=== PATIENT | male | born 1940 | race Two or more races ===

== ENCOUNTER 2018-02-17 02:33 | Emergency (ER) | payer OTHER ==
[~2018-02-17] VITALS: Ht 160 cm; Wt 70.3 kg
[2018-02-17 02:44] VITALS: BP 121/51
== END 2018-02-17 05:50 | disposition left against medical advice (07) ==
LOC: ER 02:34
DX: R05 Cough (principal); Z53.21 Procedure and treatment not carried out due to patient leaving prior to being seen by health care provider
CPT/HCPCS: 71045

== ENCOUNTER 2025-04-07 00:03 | Inpatient (IN) | payer OTHER, MEDICAID ==
[~2025-04-07] VITALS: Ht 160 cm; Wt 74.5 kg
[2025-04-07] VITALS (7 sets, daily range): BP systolic 151–155; BP diastolic 70–84; PULSE 36–69; RESP 17–24; TEMP 97.6–97.7; O2SAT 96–98
--- NOTE | 2025-04-07 00:33 | ED.PDOC ---
SOB-HPI HPI Comments 84 year old Male with a Hx of HTN and DM was BIB daughter for the c/c of SOB. Per Daughter pt was a [facility] 2x days ago for SOB/Hypotension and was told that he needs a pacemaker. Pt now presents to [facility] for SOB, but with associated Dizziness and a GONZALES. Pt also notes that he experiences pain upon deep inspiration. No other associated symptoms, modifiers, recent injuries or sick contacts present at this time. Time Seen by MD: 00:26 Reviewed notes: Nurses Notes, Medications, Allergies Information Source: Patient, Relative (Child) Mode of Arrival: Ambulatory Severity: Moderate Timing: Days Duration: Since onset, Days Context: At Rest PE Risk Factors: None History of: Other (HTN and DM) Prehospital treatment: None Modifying Factors: Nothing Associated Signs and Symptoms: Other (Dizziness and GONZALES) If cough with SOB: Non-Productive Vital Signs Vital Signs Date Time Temp Pulse Resp B/P (MAP) Pulse Ox O2 Delivery O2 Flow Rate FiO2 04/07/25 05:34 37 17 132/47 (75) 94 04/07/25 00:32 Room Air* 0 21 04/07/25 00:32 98.0 98.0 Physical Exam General: Awake, alert and oriented. Moderate distress. Skin: Skin in warm, dry and intact. Appropriate color for ethnicity. HEENT: The head is normocephalic and atraumatic. Conjunctivae are clear without exudates or hemorrhage. Sclera is non-icteric. EOM are intact. No signs of nystagmus. Eyelids are normal in appearance without swelling or lesions. Oral mucosa is pink and moist Neck: The neck is supple with normal range of motion. No JVD. Cardiac: Heart rate and rhythm are normal. No murmurs, gallops, or rubs are auscultated. Respiratory: SOB Noted, pain upon deep inspiration. Lung sounds are clear in all lobes bilaterally without rales, rhonchi, or wheezes. Abdominal: Abdomen is soft, non-tender without distention, guarding or rigidity. Bowel sounds are present and normoactive in all four quadrants. Extremities: Upper and lower extremities are atraumatic in appearance without deformity or edema. Neurological: The patient is awake, alert and oriented to person, place, and time with normal speech. Speech is clear. There is no facial asymmetry. Psychiatric: Appropriate mood and affect. Good judgement and insight. Review of Systems: REVIEW OF SYSTEMS: No fever, no chills, or fatigue HEENT: No sore throat, no earache, no congestion, no neck pain. Cardiac: No chest pain. No palpitations. Lungs: + shortness of breath, no cough. GI: No nausea, no vomiting, no diarrhea, no constipation, no abdominal pain : No dysuria, frequency, or urgency. No hematuria. Musculoskeletal: No joint pain , no joint swelling, no extremity edema. Skin: No rash, no itching. Neuro: + headache, + dizziness, no weakness Past Medical History PAST MEDICAL HISTORY: DM, HTN Surgical History (Other): Bilateral full knee replacement Family History Family History: Unknown Social History Smoker: Non-Smoker Alcohol: Denies ETOH Use Drugs: Denies Drug Use Lives In: Home Was a procedure done? Was a procedure done?: No Differential Dx Differential Diagnosis: Anxiety, Bronchitis, Cardiogenic Shock, CHF, COPD, Hypertension, Myocardial infarction, Pneumonia, Other (Cardiac arrhythmia, heart block, other) X-Ray, Labs, Meds, VS Vital Signs Date Time Temp Pulse Resp B/P (MAP) Pulse Ox O2 Delivery O2 Flow Rate FiO2 04/07/25 05:34 37 17 132/47 (75) 94 04/07/25 04:32 45 10 176/78 (110) 96 04/07/25 04:30 44 04/07/25 03:00 44 17 181/64 (103) 97 04/07/25 02:00 44 11 171/67 (101) 96 04/07/25 00:52 38 20 154/66 (95) 96 04/07/25 00:32 36 17 96 Room Air* 0 21 04/07/25 00:32 98.0 36 17 199/75 (116) 96 98.0 04/07/25 00:30 38 04/07/25 00:18 34 04/07/25 00:10 97.6 36 18 167/59 (95) 98 97.6 Lab Test 04/07/25 02:47 04/07/25 01:54 04/07/25 01:06 04/07/25 00:32 Range/Units White Blood Count 7.3 4.4-10.8 10^3/uL Red Blood Count 4.68 4.5-5.90 10^6/uL Hemoglobin 14.3 13.5-17.5 g/dL Hematocrit 41.0 41.0-53.0 % Mean Corpuscular Volume 87.7 80.0-100.0 fL Mean Corpuscular Hemoglobin 30.6 28.0-32.0 pg Mean Corpuscular Hemoglobin Concent 34.9 32.0-36.0 g/dL Red Cell Distribution Width 13.5 11.8-14.3 % Platelet Count 161 140-450 10^3/uL Mean Platelet Volume 9.3 6.9-10.8 fL Neutrophils (%) (Auto) 49.1 37.0-80.0 % Lymphocytes (%) (Auto) 40.9 10.0-50.0 % Monocytes (%) (Auto) 6.2 0.0-12.0 % Eosinophils (%) (Auto) 3.0 0.0-7.0 % Basophils (%) (Auto) 0.8 0.0-2.0 % Neutrophils # (Auto) 3.6 1.6-8.6 10 ^3/uL Lymphocytes # (Auto) 3.0 0.4-5.4 10 ^3/uL Monocytes # (Auto) 0.5 0-1.3 10 ^3/uL Eosinophils # (Auto) 0.2 0-0.8 10 ^3/uL Basophils # (Auto) 0.1 0-0.2 10 ^3/uL Nucleated Red Blood Cells 0.0 % Urine Color Light-yellow Yellow Urine Clarity Clear Clear Urine pH 6.5 5.0-9.0 Urine Specific [place] 1.008 1.001-1.035 Urine Protein Negative Negative Urine Ketones Negative Negative Urine Blood Negative Negative /uL Urine Nitrite Negative Negative Urine Bilirubin Negative Negative Urine Urobilinogen Normal Negative mg/dL Urine Leukocyte Esterase Negative Negative /uL Urine RBC None seen 0 - 3 /hpf Urine Microscopic WBC < 1 0-3 /HPF Urine Squamous Epithelial Cells None seen <5 /hpf Urine Bacteria None seen None Seen /hpf Urine Glucose Normal Normal mg/dL POC Glucose 110 H 70-106 mg/dl Sodium Level 139 136-145 mmol/L Potassium Level 3.7 3.5-5.1 mmol/L Chloride Level 102 98-107 mmol/L Carbon Dioxide Level 28 20-31 mmol/L Anion Gap 9 5-15 Blood Urea Nitrogen 14 9-23 mg/dL Creatinine 1.01 0.700-1.30 mg/dL Glomerular Filtration Rate Calc 73 >90 mL/min BUN/Creatinine Ratio 13.9 10.0-20.0 Serum Glucose 110 H 74-106 mg/dL Calcium Level 9.9 8.7-10.4 mg/dL Magnesium Level 1.9 1.6-2.6 mg/dL Troponin I High Sensitivity 14 </=54 ng/L B-Type Natriuretic Peptide 192.89 0-100 pg/mL Thyroid Stimulating Hormone (TSH) 2.64 0.55-4.78 uIU/mL PATIENT: ROLAND DAILY ACCT: [id number] UNIT: [id number] : 1940 LOC: ER ROOM / BED: / AGE / SEX: 84 / M ADM STATUS: REG ER SERVICE 0022 ORDERING PHYSICIAN: ZACKARY LOZANO MD PROCEDURE(s): CXR1 - CHEST XRAY 1 VIEW REASON: sob, bradycardia ORDER NUMBER(s): [id number], ACCESSION NUMBER(s): [id number] CHEST RADIOGRAPH Indication: sob, bradycardia Technique: Single frontal view of the chest was obtained COMPARISON: None FINDINGS: Lines and Tubes: None Lungs: Clear Pleura: No effusion. No pneumothorax. Cardiomediastinal contours: Unremarkable. Atherosclerotic vascular calcifications. Bones: Unremarkable IMPRESSION: 1. No acute disease. Time of 1ST Reevaluation: 00:58 Reevaluation 1ST: Unchanged Patient Education/Counseling: Need For Follow Up Family Education/Counseling: Need For Follow Up Departure 1 Departure Time of Disposition: 03:13 Impression: Primary Impression: Symptomatic bradycardia Disposition: 09 ADMITTED INPATIENT Condition: Stable e-Prescriptions Doxycycline (Monohydrate) (Doxycycline) 100 Mg Tab 100 MG PO BID for 7 Days, #14 TAB 0 Refills Prov: REYMUNDOTREVONMARIANO DO 04/08/25 Comments Extensive evaluation was performed in attempt to identify or rule out: (See differential diagnosis section) The following tests were ordered, and results were reviewed by me and discussed with patient: (See diagnostic results section) The following test were independently interpreted by me: EKG I reviewed and agreed with the following test results read by other providers: Chest x-ray I reviewed the following notes from the pt's past medical encounters: January 2018 for cough Additional information was gathered from interviewing the following independent historians: Patient's at bedside Discussion of management or test interpretation with external physician/other qualified health career development specialist: Dr. Bentley Addressed an acute or chronic illness that poses a threat to life or bodily function: Dramatic bradycardia Decision regarding hospitalization or escalation of hospital level of care: Risk and benefits of admission for further treatment of patient's condition was considered. Due to patient's current clinical condition, high risk of decline and poor outcome if discharged and need for further inpatient management and mo nitoring, patient will be admitted to the hospital. Drug therapy requiring intensive monitoring for toxicity: IV atropine Parenteral controlled substances: N/A Decision regarding elective major surgery with identified patient or procedure risk factors: N/A Decision regarding emergency major surgery: N/A Decision not to resuscitate or to de-escalate care because of poor prognosis: N/A Diagnosis or treatment significantly limited by social determinants of health: N/A Critical Care Note Critical Care Time?: No Stability Stability form required: No Heart Score Heart Score: Heart Score Response (Comments) Value History N/A 0 EKG N/A 0 Age N/A 0 Risk Factors N/A 0 Troponin N/A 0 Total 0 I personally scribed for ZACKARY LOZANO MD ([email or web address]) on 04/07/25 at 00:33. Electronically submitted by Bruce Machuca ([email or web address]). I personally scribed for ZACKARY LOZANO MD ([email or web address]) on 04/07/25 at 01:19. Electronically submitted by Bruce Machuca ([email or web address]). I personally scribed for ZACKARY LOZANO MD ([email or web address]) on 04/07/25 at 01:49. Electronically submitted by Bruce Machuca ([email or web address]). ZACKARY LOZANO MD Apr 07, 2025 00:33
[2025-04-07] MEDS: ATROPINE SULF 1 MG/10ml SYR IV ONE ×2 (00:51→06:03)
[2025-04-07 01:01] LABS: Chloride 102 mmol/L (98-107); Potassium 3.7 mmol/L (3.5-5.1); Sodium 139 mmol/L (136-145)
[2025-04-07 01:02] LABS: Anion Gap 9 (5-15); Calcium 9.9 mg/dL (8.7-10.4); Carbon Dioxide 28 mmol/L (20-31)
[2025-04-07 01:07] LABS: BUN/Creatinine Ratio 13.9 (10.0-20.0); Blood Urea Nitrogen 14 mg/dL (9-23); Glucose 110 mg/dL (74-106); Magnesium 1.9 mg/dL (1.6-2.6)
--- NOTE | 2025-04-07 01:14 | DVH ---
CHEST RADIOGRAPH Indication: sob, bradycardia Technique: Single frontal view of the chest was obtained COMPARISON: None FINDINGS: Lines and Tubes: None Lungs: Clear Pleura: No effusion. No pneumothorax. Cardiomediastinal contours: Unremarkable. Atherosclerotic vascular calcifications. Bones: Unremarkable IMPRESSION: 1. No acute disease.
[2025-04-07 02:02] LABS: Urine Bacteria None Seen /hpf (None Seen)
[2025-04-07 02:13] LABS: Urine Blood Negative /uL (Negative); Urine Clarity Clear (Clear); Urine Color Light-Yellow (Yellow); Urine Protein, UAD Negative (Negative); Urine Specific Gravity 1.008 (1.001-1.035); Urine Squamous Epithelial Cell None Seen /hpf (<5); Urine Urobilinogen Normal (Negative); Urine WBC < 1 /HPF (0-3); Urine pH 6.5 (5.0-9.0)
[2025-04-07 02:57] LABS: Basophils # (auto) 0.1 10 ^3/uL (0-0.2); Basophils % (auto) 0.8 % (0.0-2.0); Eosinophils # (auto) 0.2 10 ^3/uL (0-0.8); Hemoglobin 14.3 g/dL (13.5-17.5); Lymphocytes % (auto) 40.9 % (10.0-50.0); Mean Corpuscular Hemoglobin 30.6 pg (28.0-32.0); Mean Corpuscular Hgb Conc. 34.9 g/dL (32.0-36.0); Mean Corpuscular Volume 87.7 fL (80.0-100.0); Monocytes # (auto) 0.5 10 ^3/uL (0-1.3); Monocytes % (auto) 6.2 % (0.0-12.0); Neutrophils # (auto) 3.6 10 ^3/uL (1.6-8.6); Neutrophils % (auto) 49.1 % (37.0-80.0); Platelet Count (auto) 161 10^3/uL (140-450); Red Blood Cells 4.68 10^6/uL (4.5-5.90); Red Cell Distribution Width 13.5 % (11.8-14.3); White Blood Cell 7.3 10^3/uL (4.4-10.8)
[2025-04-07] MEDS ORDERED: NITROGLYCERIN 0.4 MG SL TAB SL PRN (06:15)
[2025-04-07] MEDS ORDERED: MORPHINE SULFATE 4 MG/ML SYR/VIAL IV PRN (06:15)
[2025-04-07] MEDS ORDERED: hydrALAZINE HCL 10 MG TAB PO PRN (06:15)
--- NOTE | 2025-04-07 06:18 | DVHHP2 ---
Admitting Diagnosis: Symptomatic bradycardia History of Present Illness HPI 84 y.o. male with HTN and DM was brought to the ER c/o SOB, lightheadedness for a week. He visited [facility] 3 days ago and was told that he needs a pacemaker. In the ER today he received Atropine twice. HR is still in 30-40s. Patient denied CP, palpitations, AP, fever. Past Medical History Cardiac: HTN Endocrine: NIDDM Review of Systems Cardiovascular: Lt Headedness, Other (bradycardia) H&P Exam Vital Signs Vital Signs Date Time Temp Pulse Resp B/P (MAP) Pulse Ox O2 Delivery O2 Flow Rate FiO2 04/07/25 04:32 45 10 176/78 (110) 96 04/07/25 00:32 Room Air* 0 21 04/07/25 00:32 98.0 98.0 General Appeara: Obese Head Exam: Normal inspection Neck Exam: Non-tender Eye Exam: bilateral eye PERRL, bilateral eye EOMI Pulmonary/Respiratory: Lungs clear Cardiovascular/Chest: Bradycardia Neuro/Mental St: Alert, Oriented Labs/Xrays Labs Test 04/07/25 02:47 04/07/25 01:54 04/07/25 01:06 04/07/25 00:32 Range/Units White Blood Count 7.3 4.4-10.8 10^3/uL Red Blood Count 4.68 4.5-5.90 10^6/uL Hemoglobin 14.3 13.5-17.5 g/dL Hematocrit 41.0 41.0-53.0 % Mean Corpuscular Volume 87.7 80.0-100.0 fL Mean Corpuscular Hemoglobin 30.6 28.0-32.0 pg Mean Corpuscular Hemoglobin Concent 34.9 32.0-36.0 g/dL Red Cell Distribution Width 13.5 11.8-14.3 % Platelet Count 161 140-450 10^3/uL Mean Platelet Volume 9.3 6.9-10.8 fL Neutrophils (%) (Auto) 49.1 37.0-80.0 % Lymphocytes (%) (Auto) 40.9 10.0-50.0 % Monocytes (%) (Auto) 6.2 0.0-12.0 % Eosinophils (%) (Auto) 3.0 0.0-7.0 % Basophils (%) (Auto) 0.8 0.0-2.0 % Neutrophils # (Auto) 3.6 1.6-8.6 10 ^3/uL Lymphocytes # (Auto) 3.0 0.4-5.4 10 ^3/uL Monocytes # (Auto) 0.5 0-1.3 10 ^3/uL Eosinophils # (Auto) 0.2 0-0.8 10 ^3/uL Basophils # (Auto) 0.1 0-0.2 10 ^3/uL Nucleated Red Blood Cells 0.0 % Urine Color Light-yellow Yellow Urine Clarity Clear Clear Urine pH 6.5 5.0-9.0 Urine Specific [place] 1.008 1.001-1.035 Urine Protein Negative Negative Urine Ketones Negative Negative Urine Blood Negative Negative /uL Urine Nitrite Negative Negative Urine Bilirubin Negative Negative Urine Urobilinogen Normal Negative mg/dL Urine Leukocyte Esterase Negative Negative /uL Urine RBC None seen 0 - 3 /hpf Urine Microscopic WBC < 1 0-3 /HPF Urine Squamous Epithelial Cells None seen <5 /hpf Urine Bacteria None seen None Seen /hpf Urine Glucose Normal Normal mg/dL POC Glucose 110 H 70-106 mg/dl Sodium Level 139 136-145 mmol/L Potassium Level 3.7 3.5-5.1 mmol/L Chloride Level 102 98-107 mmol/L Carbon Dioxide Level 28 20-31 mmol/L Anion Gap 9 5-15 Blood Urea Nitrogen 14 9-23 mg/dL Creatinine 1.01 0.700-1.30 mg/dL Glomerular Filtration Rate Calc 73 >90 mL/min BUN/Creatinine Ratio 13.9 10.0-20.0 Serum Glucose 110 H 74-106 mg/dL Calcium Level 9.9 8.7-10.4 mg/dL Magnesium Level 1.9 1.6-2.6 mg/dL Troponin I High Sensitivity 14 </=54 ng/L B-Type Natriuretic Peptide 192.89 0-100 pg/mL Thyroid Stimulating Hormone (TSH) 2.64 0.55-4.78 uIU/mL Assessment/Plan Problem List: (1) Symptomatic bradycardia (2) HTN (hypertension) (3) DM (diabetes mellitus) Plan ECHO, cardiology consult, Insulin Plan discussed with: Patient FRANKY SAMANO MD Apr 07, 2025 06:18
[2025-04-07] MEDS ORDERED: ONDANSETRON HCL 4 MG/2 ML VIAL IV PRN (06:30)
[2025-04-07] MEDS ORDERED: DEXTROSE (50%) 50ML SYRG IV PRN (06:30)
[2025-04-07] MEDS: SOD CHL 0.45% 1,000 ML IV ONE (06:46)
[2025-04-07 06:47] LABS: INR 1.08 (0.9-1.15); Prothrombin Time 11.4 sec (9.3-11.8)
[2025-04-07] MEDS: InsuLIN REG 1unit/0.01ml Soln (100units/ml) SC SCH (07:30)
[2025-04-07] MEDS: ACCU-CHEK COMFORT CURVE STRIP VI SCH (07:30)
[2025-04-07] MEDS: hydrALAZINE HCL 20 MG/ML VL IV PRN (10:51)
--- NOTE | 2025-04-07 11:42 | DVHSR ---
APPROVED REPORT EXAM: Two-dimensional and M-mode echocardiogram with Doppler and color Doppler. Blood Pressure: 132/47 mmHg INDICATION Symtomatic bradycardia RISK FACTORS Height: 63, Weight: 156 DIMENSIONS LVDd4.9 (3.8-5.7cm)LA (2D)4.0 (1.9-4.0cm)Aortic Root4.3 (2.0-3.7cm) LVDs3.3 (2.5-4.0cm)LA (MM) (1.9-4.0cm)Aortic Cusp Exc1.6 (1.5-2.0cm) EF (%) 62.0 (55-70%)Rt. Atrium3.4 (1.9-4.0cm)Asc. Aorta cm IVSd1.2 (0.7-1.1cm)RV (D) (1.8-2.4cm) PWd1.5 (0.7-1.1cm) Mitral Valve MitralMitral Stenosis E wave0.89m/sMV Mean GR.mmHg A wave0.94m/sMV Peak GR.105mmHg E/A ratio0.92D MVAcm2 DECEL Lcwa303taMITAN 1/2 Tim[place] Aortic Valve Aortic ValveAortic Stenosis V10.95m/[place] Mean GR.5mmHg V21.67m/[place] Peak GR.11mmHg LVOT Diameter2.2 (1.8-2.4cm)Doppler AVA2.16cm2 AI P 1/2 Tbqu784.04ms Pulmonic Valve V21.18m/s Tricuspid Valve TR Velocity2.32m/s FITC10cmFn Other Information Technically limited study due to patient laying flat on his back and low heart rate. Conclusion lvef 55% normal rv function left atrium enlarged no severe valve abnormalites noted mild aortic regurg
--- NOTE | 2025-04-07 12:07 | DVHINCON2 ---
Date of service: Apr 07, 2025 History of Present Illness 84 yo M admitted for dizziness foudn to be jesus to 30s. ecg showed junctional jesus rate of 38. pt feels better now with HR 50s Past Medical History reviewed Allergies: Coded Allergies: NO KNOWN ALLERGIES (Unverified , 04/07/25) Current Medications Current Medications Medications (Trade) Dose Ordered Sig/Celestina Route PRN Reason Start Time Stop Time Status Last Admin Nitroglycerin (Ntrostat Sublingual) 0.4 mg Q5MINP PRN SL FOR CHEST PAIN 04/07/25 06:15 Morphine Sulfate 2 mg Q30M PRN IV FOR CHEST PAIN 04/07/25 06:15 Hydralazine HCl (Apresoline Tablet) 20 mg Q4HP PRN PO SBP>150 04/07/25 06:15 04/07/25 07:37 DC Diagnostic Test (Pha) (Accu-Chek Comfort Curve T) 1 strip ACHS 04/07/25 07:00 04/07/25 11:37 Insulin Human Regular (InsuLIN R) ACHS SC 04/07/25 07:00 04/07/25 11:43 Dextrose 50 ml UD PRN IV Blood Sugar LESS THAN 60 04/07/25 06:30 Ondansetron HCl (Zofran) 4 mg Q6HPRN PRN IV NAUSEA / VOMITING 04/07/25 06:30 Hydralazine HCl (Apresoline Injection) 10 mg Q6HP PRN IV SBP>150 04/07/25 07:45 04/07/25 10:51 Review of Systems 10 pt ros otherwise negative Vital Signs Vital Signs Date Time Temp Pulse Resp B/P (MAP) Pulse Ox O2 Delivery O2 Flow Rate FiO2 04/07/25 11:51 56 04/07/25 10:51 164/73 04/07/25 10:10 16 98 04/07/25 08:21 97.8 97.8 04/07/25 07:40 Room Air* 0 21 Physical Exam nad s1 s2 jesus ctab soft nt/nd no edema Labs/Diagnostic Data Labs Test 04/07/25 11:37 04/07/25 06:14 04/07/25 02:47 04/07/25 01:54 Range/Units POC Glucose 193 H 70-106 mg/dl Prothrombin Time 11.4 9.3-11.8 sec Prothrombin Time INR 1.08 0.9-1.15 White Blood Count 7.3 4.4-10.8 10^3/uL Red Blood Count 4.68 4.5-5.90 10^6/uL Hemoglobin 14.3 13.5-17.5 g/dL Hematocrit 41.0 41.0-53.0 % Mean Corpuscular Volume 87.7 80.0-100.0 fL Mean Corpuscular Hemoglobin 30.6 28.0-32.0 pg Mean Corpuscular Hemoglobin Concent 34.9 32.0-36.0 g/dL Red Cell Distribution Width 13.5 11.8-14.3 % Platelet Count 161 140-450 10^3/uL Mean Platelet Volume 9.3 6.9-10.8 fL Neutrophils (%) (Auto) 49.1 37.0-80.0 % Lymphocytes (%) (Auto) 40.9 10.0-50.0 % Monocytes (%) (Auto) 6.2 0.0-12.0 % Eosinophils (%) (Auto) 3.0 0.0-7.0 % Basophils (%) (Auto) 0.8 0.0-2.0 % Neutrophils # (Auto) 3.6 1.6-8.6 10 ^3/uL Lymphocytes # (Auto) 3.0 0.4-5.4 10 ^3/uL Monocytes # (Auto) 0.5 0-1.3 10 ^3/uL Eosinophils # (Auto) 0.2 0-0.8 10 ^3/uL Basophils # (Auto) 0.1 0-0.2 10 ^3/uL Nucleated Red Blood Cells 0.0 % Urine Color Light-yellow Yellow Urine Clarity Clear Clear Urine pH 6.5 5.0-9.0 Urine Specific [place] 1.008 1.001-1.035 Urine Protein Negative Negative Urine Ketones Negative Negative Urine Blood Negative Negative /uL Urine Nitrite Negative Negative Urine Bilirubin Negative Negative Urine Urobilinogen Normal Negative mg/dL Urine Leukocyte Esterase Negative Negative /uL Urine RBC None seen 0 - 3 /hpf Urine Microscopic WBC < 1 0-3 /HPF Urine Squamous Epithelial Cells None seen <5 /hpf Urine Bacteria None seen None Seen /hpf Urine Glucose Normal Normal mg/dL Test 04/07/25 00:32 Range/Units Sodium Level 139 136-145 mmol/L Potassium Level 3.7 3.5-5.1 mmol/L Chloride Level 102 98-107 mmol/L Carbon Dioxide Level 28 20-31 mmol/L Anion Gap 9 5-15 Blood Urea Nitrogen 14 9-23 mg/dL Creatinine 1.01 0.700-1.30 mg/dL Glomerular Filtration Rate Calc 73 >90 mL/min BUN/Creatinine Ratio 13.9 10.0-20.0 Serum Glucose 110 H 74-106 mg/dL Calcium Level 9.9 8.7-10.4 mg/dL Magnesium Level 1.9 1.6-2.6 mg/dL Troponin I High Sensitivity 14 </=54 ng/L B-Type Natriuretic Peptide 192.89 0-100 pg/mL Thyroid Stimulating Hormone (TSH) 2.64 0.55-4.78 uIU/mL Assessment HTN HL sick sinus syndrome obesity ckd Plan/Recommendation given low HR , PPM indicated currently HR in low 50s but still junctional hold avn agents echo fu report cont tele atropine prn dopamine gtt if HR worsens Plan discussed with: Patient RAMSES PEMBERTON MD Apr 07, 2025 12:07
--- NOTE | 2025-04-07 15:43 | ECG ---
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
[2025-04-07 16:29] LABS: INR 1.08 (0.9-1.15); Prothrombin Time 11.4 sec (9.3-11.8)
--- NOTE | 2025-04-07 18:28 | ECG ---
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
[2025-04-07] MEDS ORDERED: LOSA-534 PO (20:22)
[2025-04-07] MEDS ORDERED: ATOR20TA50 PO (20:22)
[2025-04-07] MEDS ORDERED: HYDR25TA5 GT (20:22)
[2025-04-07] MEDS ORDERED: NAPR-957 PO (20:22)
[2025-04-07] MEDS ORDERED: AMLO1TAB22 PO (20:22)
[2025-04-07] MEDS ORDERED: CHOL200010 PO (20:22)
[2025-04-07] MEDS ORDERED: TAMS-35 PO (20:22)
[2025-04-07] MEDS ORDERED: ASPI1TAB20 PO (20:22)
[2025-04-08] VITALS (12 sets, daily range): BP systolic 109–174; BP diastolic 64–90; PULSE 48–93; RESP 12–19; TEMP 97.2–98.2; O2SAT 94–98
--- NOTE | 2025-04-08 06:55 | DVHPN2 ---
Progress Note Date Seen: Apr 08, 2025 Medical Necessity Reason Pt with a Central, PICC or Fol: No Subjective Patient reports: No new complaints Review of Systems: CVS:Abnormal Objective vital signs Vital Sign Date Time Temp Pulse Resp B/P (MAP) Pulse Ox O2 Delivery O2 Flow Rate FiO2 04/08/25 05:00 97.8 50 16 143/66 (91) 98 97.8 04/07/25 20:00 Room Air* 0 21 Total Intake and Output 04/07/25 04/07/25 04/08/25 15:00 23:00 07:00 Intake Total 600 ml 150 ml 500 ml Balance 600 ml 150 ml 500 ml medications Current Medications Medications Dose Ordered Sig/Celestina Route Start Time Stop Time Status Last Admin Dose Admin Nitroglycerin 0.4 mg Q5MINP PRN SL 04/07/25 06:15 Morphine Sulfate 2 mg Q30M PRN IV 04/07/25 06:15 Diagnostic Test (Pha) 1 strip ACHS 04/07/25 07:00 04/08/25 06:06 1 STRIP Insulin Human Regular ACHS SC 04/07/25 07:00 04/08/25 06:07 2 UNITS Dextrose 50 ml UD PRN IV 04/07/25 06:30 Ondansetron HCl 4 mg Q6HPRN PRN IV 04/07/25 06:30 Hydralazine HCl 10 mg Q6HP PRN IV 04/07/25 07:45 04/07/25 10:51 10 MG Examination: GENERAL:Normal, LUNGS:Normal, CVS:Abnormal laboratory and microbiology Laboratory Tests 04/07/25 02:47 04/07/25 00:32 Test 04/07/25 00:32 Range/Units Serum Glucose 110 H 74-106 mg/dL Problem List/Assessment/Plan Problem List/Assessment/Plan 1) Symptomatic bradycardia 2) HTN 3) HLD 4) DM plan; PPM today with cardiology, NPO, supportive care, daily labs, dc planning once cleared by cardio after PPM, echo shows preserved EF, will follow along Plan discussed with: Other (n) DEREK MILLARD MD Apr 08, 2025 06:55
[2025-04-08 07:43] LABS: Basophils # (auto) 0 10 ^3/uL (0-0.2); Basophils % (auto) 0.4 % (0.0-2.0); Eosinophils # (auto) 0.2 10 ^3/uL (0-0.8); Eosinophils % (auto) 2.3 % (0.0-7.0); Hematocrit 42.4 % (41.0-53.0); Hemoglobin 15.1 g/dL (13.5-17.5); Lymphocytes # (auto) 2.4 10 ^3/uL (0.4-5.4); Lymphocytes % (auto) 30.9 % (10.0-50.0); Mean Corpuscular Hgb Conc. 35.7 g/dL (32.0-36.0); Monocytes # (auto) 0.5 10 ^3/uL (0-1.3); Monocytes % (auto) 6.2 % (0.0-12.0); Neutrophils # (auto) 4.7 10 ^3/uL (1.6-8.6); Neutrophils % (auto) 60.2 % (37.0-80.0); Nucleated Red Blood Cells % 0.1 %; Platelet Count (auto) 163 10^3/uL (140-450); Red Blood Cells 4.88 10^6/uL (4.5-5.90); Red Cell Distribution Width 13.4 % (11.8-14.3); White Blood Cell 7.8 10^3/uL (4.4-10.8)
[2025-04-08 07:55] LABS: Alanine Aminotransferase 19 U/L (7-40); Albumin 4.1 g/dL (3.2-4.8); Alkaline Phosphatase 84 U/L (46-116); Anion Gap 11 (5-15); Aspartate Aminotransferase 17 U/L (13-40); BUN/Creatinine Ratio 14.1 (10.0-20.0); Blood Urea Nitrogen 14 mg/dL (9-23); Calcium 9.8 mg/dL (8.7-10.4); Carbon Dioxide 25 mmol/L (20-31); Chloride 105 mmol/L (98-107); Glucose 121 mg/dL (74-106); Potassium 3.4 mmol/L (3.5-5.1); Sodium 141 mmol/L (136-145); Total Protein 6.3 g/dL (5.7-8.2)
[2025-04-08 07:56] LABS: Bilirubin, Total 2.5 mg/dL (0.2-1.0)
[2025-04-08] MEDS: fentaNYL CITRATE 100 MCG/2 ML VL ONE (08:35)
[2025-04-08] MEDS: MIDAZOLAM HCL 2MG/2ML 2ml VIAL (1mg/ml) ONE (08:35)
[2025-04-08] MEDS: VANCOMYCIN HCL 1000 MG VL ONE ×2 (08:35→09:42)
[2025-04-08] MEDS: LIDOCAINE 2%HCL (LOCAL ANESTH.) INJ 20ML MDV ONE (08:36)
[2025-04-08] MEDS: VANCOMYCIN 1GM/200ML PM 200 ML IV ONE (08:36)
[2025-04-08] MEDS: methylPREDNISolone SOD SUCC 125 MG/2 ML VL ONE (08:42)
[2025-04-08] MEDS: diphenhdrAMINE HCL 50 MG/1 ML VL ONE (08:42)
[2025-04-08] MEDS: IOHEXOL 350 MG/ML 100ML IJ ONE (08:44)
[2025-04-08 10:36] LABS: Hepatitis B Surface Antigen Negative (Negative); Hepatitis C Antibody Negative (Negative)
--- NOTE | 2025-04-08 11:16 | DVH ---
CHEST RADIOGRAPH Indication: S/P PACEMAKER Technique: Single frontal view of the chest was obtained COMPARISON: None FINDINGS: Left cardiac dual lead pacer device. Aortic atherosclerotic disease. The cardiac silhouette is enlarged. The lungs demonstrate bilateral patchy airspace opacities. The pu lmonary vasculature is prominent. Small bilateral pleural effusions, inlg-wjgrzxa-bora-right. There i s no pneumothorax. IMPRESSION: 1. As above
[2025-04-08] MEDS: DOXYCYCLINE 100 MG TAB/CAP PO SCH (11:58)
--- NOTE | 2025-04-08 12:23 | ECG ---
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
[2025-04-08] MEDS: HYDROcodone-ACET 5/325MG TAB PO PRN (13:18)
--- NOTE | 2025-04-08 17:00 | DVHPN2 ---
Progress Note Date Seen: Apr 08, 2025 Medical Necessity Reason Pt with a Central, PICC or Fol: No Subjective Patient reports: Feels better Objective vital signs Vital Sign Date Time Temp Pulse Resp B/P (MAP) Pulse Ox O2 Delivery O2 Flow Rate FiO2 04/08/25 11:59 175/90 04/08/25 11:15 97.6 60 17 96 97.6 04/07/25 20:00 Room Air* 0 21 Total Intake and Output 04/07/25 04/07/25 04/08/25 15:00 23:00 07:00 Intake Total 600 ml 150 ml 500 ml Balance 600 ml 150 ml 500 ml medications Current Medications Medications Dose Ordered Sig/Celestina Route Start Time Stop Time Status Last Admin Dose Admin Nitroglycerin 0.4 mg Q5MINP PRN SL 04/07/25 06:15 Morphine Sulfate 2 mg Q30M PRN IV 04/07/25 06:15 Diagnostic Test (Pha) 1 strip ACHS 04/07/25 07:00 04/08/25 11:30 1 STRIP Insulin Human Regular ACHS SC 04/07/25 07:00 04/08/25 11:30 3 UNITS Dextrose 50 ml UD PRN IV 04/07/25 06:30 Ondansetron HCl 4 mg Q6HPRN PRN IV 04/07/25 06:30 Hydralazine HCl 10 mg Q6HP PRN IV 04/07/25 07:45 04/08/25 11:59 10 MG Vancomycin HCl 200 ml @ 200 mls/hr Q12HR IV 04/08/25 22:00 04/09/25 10:59 Doxycycline Monohydrate 100 mg Q12HR PO 04/08/25 11:04 04/08/25 11:58 100 MG Acetaminophen/ Hydrocodone Bitart 1 tab Q4HPRN PRN PO 04/08/25 12:30 04/08/25 13:18 1 TAB Examination: GENERAL:Abnormal, HEENT:Abnormal, LUNGS:Abnormal, CVS:Abnormal, ABDOMEN:Abnormal laboratory and microbiology Laboratory Tests 04/08/25 06:34 Test 04/08/25 06:34 Range/Units Serum Glucose 121 H 74-106 mg/dL Problem List/Assessment/Plan Problem List/Assessment/Plan sick sinus s/p ppm bradycardia HTN HL cont abx dc home 04/09 after device check with 7 days of doxy wound check 1-2 weeks with me Plan discussed with: Patient Date of Service: Apr 08, 2025 Billing Provider: RAMSES PEMBERTON MD Common Visit Codes: NOT BILLABLE RAMSES PEMBERTON MD Apr 08, 2025 17:00
[2025-04-08] MEDS: VANCOMYCIN 1GM/200ML PM 200 ML IV SCH (21:55)
[2025-04-08] MEDS ORDERED: DOXY-346 PO (22:46)
--- NOTE | 2025-04-08 22:52 | DVHDS2 ---
Discharge Summary Date of Admission Apr 07, 2025 at 06:01 Date of Discharge: Apr 09, 2025 Labs/Diagnostic Data: Laboratory Results Test 04/08/25 20:46 04/08/25 06:34 04/07/25 15:58 04/07/25 01:54 POC Glucose 286 mg/dl (70-106) White Blood Count 7.8 10^3/uL (4.4-10.8) Red Blood Count 4.88 10^6/uL (4.5-5.90) Hemoglobin 15.1 g/dL (13.5-17.5) Hematocrit 42.4 % (41.0-53.0) Mean Corpuscular Volume 87.0 fL (80.0-100.0) Mean Corpuscular Hemoglobin 31.0 pg (28.0-32.0) Mean Corpuscular Hemoglobin Concent 35.7 g/dL (32.0-36.0) Red Cell Distribution Width 13.4 % (11.8-14.3) Platelet Count 163 10^3/uL (140-450) Mean Platelet Volume 9.8 fL (6.9-10.8) Neutrophils (%) (Auto) 60.2 % (37.0-80.0) Lymphocytes (%) (Auto) 30.9 % (10.0-50.0) Monocytes (%) (Auto) 6.2 % (0.0-12.0) Eosinophils (%) (Auto) 2.3 % (0.0-7.0) Basophils (%) (Auto) 0.4 % (0.0-2.0) Neutrophils # (Auto) 4.7 10 ^3/uL (1.6-8.6) Lymphocytes # (Auto) 2.4 10 ^3/uL (0.4-5.4) Monocytes # (Auto) 0.5 10 ^3/uL (0-1.3) Eosinophils # (Auto) 0.2 10 ^3/uL (0-0.8) Basophils # (Auto) 0 10 ^3/uL (0-0.2) Nucleated Red Blood Cells 0.1 % Sodium Level 141 mmol/L (136-145) Potassium Level 3.4 mmol/L (3.5-5.1) Chloride Level 105 mmol/L (98-107) Carbon Dioxide Level 25 mmol/L (20-31) Anion Gap 11 (5-15) Blood Urea Nitrogen 14 mg/dL (9-23) Creatinine 0.99 mg/dL (0.700-1.30) Glomerular Filtration Rate Calc 75 mL/min (>90) BUN/Creatinine Ratio 14.1 (10.0-20.0) Serum Glucose 121 mg/dL (74-106) Calcium Level 9.8 mg/dL (8.7-10.4) Total Bilirubin 2.5 mg/dL (0.2-1.0) Aspartate Amino Transferase (AST) 17 U/L (13-40) Alanine Aminotransferase (ALT) 19 U/L (7-40) Alkaline Phosphatase 84 U/L (46-116) Total Protein 6.3 g/dL (5.7-8.2) Albumin 4.1 g/dL (3.2-4.8) Prothrombin Time 11.4 sec (9.3-11.8) Prothrombin Time INR 1.08 (0.9-1.15) Hepatitis B Surface Antigen Negative (Negative) Hepatitis C Antibody Negative (Negative) Urine Color Light-yellow (Yellow) Urine Clarity Clear (Clear) Urine pH 6.5 (5.0-9.0) Urine Specific [place] 1.008 (1.001-1.035) Urine Protein Negative (Negative) Urine Ketones Negative (Negative) Urine Blood Negative /uL (Negative) Urine Nitrite Negative (Negative) Urine Bilirubin Negative (Negative) Urine Urobilinogen Normal mg/dL (Negative) Urine Leukocyte Esterase Negative /uL (Negative) Urine RBC None seen /hpf (0 - 3) Urine Microscopic WBC < 1 /HPF (0-3) Urine Squamous Epithelial Cells None seen /hpf (<5) Urine Bacteria None seen /hpf (None Seen) Urine Glucose Normal mg/dL (Normal) Test 04/07/25 00:32 Magnesium Level 1.9 mg/dL (1.6-2.6) Troponin I High Sensitivity 14 ng/L (</=54) B-Type Natriuretic Peptide 192.89 pg/mL (0-100) Thyroid Stimulating Hormone (TSH) 2.64 uIU/mL (0.55-4.78) Other Laboratory Tests 04/08/25 06:34 Brief Hx & Hospital Course: Patient is a 84-year-old male with past medical history of hypertension, type 2 diabetes on Metformin who presented with complaints of shortness of breath and lightheadedness for the past week. Patient was noted to be bradycardic to the 30s with a junctional rhythm. Cardiology was consulted and patient underwent pacemaker placement. TTE was done which showed LVEF of 55% with no valve abnormalities. Patient was monitored overnight and subsequently had a pacemaker check. He was discharged on 7 days of doxycycline. Patient has to follow-up with cardiology in 1 to 2 weeks. Patient discharged in stable condition. [facility] case management to arrange follow-up appointments. Condition at Discharge: Good Final Diagnosis/Problems List Sick Sinus Syndrome Secondary Diagnosis: Tpe 2 Diabetes Hypertension Discharge Disposition: Home Discharge Statement: "Patient was advised to return to the ER or call 911 if any headaches, dizziness, shortness of breath, chest pain, abdominal pain, bleeding, fevers, or worsening of medical condition. Patient was counseled about treatment plan, medications, possible side effects, patientverbalized understanding. All questions were answered to the best of my ability. This discharge took greater then 30 minutes in planning, reviewing documentation, counseling the patient, and discussing with other team members." ASSESSMENT ASSESSMENT Assessment MARIANO QUACH DO Apr 08, 2025 22:52
[2025-04-09 01:00] VITALS: BP 153/79; PULSE 60; RESP 16; TEMP 97; O2SAT 97
[2025-04-09 05:00] VITALS: BP 153/90; PULSE 61; RESP 16; TEMP 98.1; O2SAT 98
--- NOTE | 2025-04-09 05:05 | DVH ---
EXAM: XR Chest, 1 View CLINICAL INDICATION: CXR FOR PACEMAKER/ICD LEAD PLACEMENT TECHNIQUE: Frontal view of the chest. COMPARISON: XY CHEST PORTABLE on DOS: 04/08/25, XY CHEST XRAY 1 VIEW on DOS: 04/07/25 FINDINGS: LUNGS AND PLEURAL SPACES: See below. HEART: Cardiomegaly with mild congestion. MEDIASTINUM: Unremarkable. Normal mediastinal contour. BONES/JOINTS: Unremarkable. No acute fracture. TUBES, LINES AND DEVICES: Left-sided cardiac pacemaker. OTHER FINDINGS: . . IMPRESSION: Cardiomegaly with mild congestion.
--- NOTE | 2025-04-09 05:12 | DVHINCON2 ---
DATE OF CONSULTATION: 04/07/2025 HISTORY OF PRESENT ILLNESS: This is an 84-year-old gentleman seen here because of feeling like passing out. Heart rate in the range of 30. Dr. Esparza advised me to put a pacemaker. The patient has a previous history of hypertension, type 2 diabetes. No smoking, no alcohol, no drugs. Previously knee replaced. PHYSICAL EXAMINATION: LUNGS: Clear. ABDOMEN: Soft, nontender. sick sinus syndrome, symptomatic bradycardia and . Advised to undergo permanent pacemaker. Risks and benefits all have been explained. Vanessa Denton MD MP/GREGORY/MER TID: [id number] RECEIPT: [id number] MTDKeisha
[2025-04-09 06:00] VITALS: BP 146/82
[2025-04-09 06:33] LABS: Basophils # (auto) 0 10 ^3/uL (0-0.2); Eosinophils # (auto) 0 10 ^3/uL (0-0.8); Hematocrit 42.7 % (41.0-53.0); Hemoglobin 15.1 g/dL (13.5-17.5); Lymphocytes # (auto) 1.2 10 ^3/uL (0.4-5.4); Lymphocytes % (auto) 5.9 % (10.0-50.0); Mean Corpuscular Hemoglobin 30.8 pg (28.0-32.0); Mean Corpuscular Hgb Conc. 35.3 g/dL (32.0-36.0); Mean Corpuscular Volume 87.2 fL (80.0-100.0); Monocytes # (auto) 0.7 10 ^3/uL (0-1.3); Monocytes % (auto) 3.4 % (0.0-12.0); Neutrophils # (auto) 18.2 10 ^3/uL (1.6-8.6); Neutrophils % (auto) 90.7 % (37.0-80.0); Platelet Count (auto) 168 10^3/uL (140-450); Red Blood Cells 4.89 10^6/uL (4.5-5.90); Red Cell Distribution Width 13.6 % (11.8-14.3); White Blood Cell 20.1 10^3/uL (4.4-10.8)
[2025-04-09 06:49] LABS: Anion Gap 12 (5-15); Carbon Dioxide 22 mmol/L (20-31); Chloride 103 mmol/L (98-107); Potassium 3.9 mmol/L (3.5-5.1); Sodium 137 mmol/L (136-145)
[2025-04-09 06:51] LABS: Calcium 9.2 mg/dL (8.7-10.4)
[2025-04-09 06:56] LABS: BUN/Creatinine Ratio 18.4 (10.0-20.0); Blood Urea Nitrogen 16 mg/dL (9-23)
[2025-04-09 06:58] LABS: Glucose 146 mg/dL (74-106)
--- NOTE | 2025-04-09 07:34 | ECG ---
[facility] Test Date: 2025-04-08 Test Time: 12:31:40 Pat Name: ROLAND DAILY Department: Respiratoy Room: 0220T B Gender: M Defensive Secondary Coach: : [id number] Requested By: ABHAY NAM Order Number: [id number] Reading MD: Quinn Mayorga Measurements Intervals [place] Rate: 70 P: 27 WV: 195 QRS: -15 QRSD: 110 T: 9 QT: 468 QTc: 506 Interpretive Statements Sinus rhythm Multiple ventricular premature complexes Borderline left axis deviation Abnormal R-wave progression, late transition Borderline T wave abnormalities Prolonged QT interval Electronically Signed On 04-10-2025 9:31:55 PDT by Quinn Mayorga Please click the below link to view image of tracing.
--- NOTE | 2025-04-09 07:35 | ECG ---
[facility] Test Date: 2025-04-08 Test Time: 12:33:07 Pat Name: ROLAND DAILY Department: Respiratoy Room: 0220T B Gender: M Belt Splicer: : 1940 Requested By: ABHAY NAM Order Number: [id number] Reading MD: Quinn Mayorga Measurements Intervals [place] Rate: 68 P: 20 [place]: 190 QRS: -15 QRSD: 115 T: 3 QT: 428 QTc: 456 Interpretive Statements Sinus rhythm Nonspecific intraventricular conduction delay Electronically Signed On 04-10-2025 9:31:57 PDT by Quinn Mayorga Please click the below link to view image of tracing.
[2025-04-09] MEDS ORDERED: METF-370 PO (08:14)
[2025-04-09 08:30] VITALS: PULSE 67
[2025-04-09 09:00] VITALS: BP 137/80; PULSE 72; RESP 17; TEMP 98.1; O2SAT 98
--- NOTE | 2025-04-09 13:18 | DVHPN2 ---
Progress Note Date Seen: Apr 09, 2025 Medical Necessity Reason Pt with a Central, PICC or Fol: No Objective vital signs Vital Sign Date Time Temp Pulse Resp B/P (MAP) Pulse Ox O2 Delivery O2 Flow Rate FiO2 04/09/25 12:21 156/71 04/09/25 09:00 98.1 72 17 98 98.1 04/08/25 20:00 Room Air* 0 21 Total Intake and Output 04/08/25 04/08/25 04/09/25 15:00 23:00 07:00 Intake Total 700 ml 800 ml Balance 700 ml 800 ml medications Current Medications Medications Dose Ordered Sig/Celestina Route Start Time Stop Time Status Last Admin Dose Admin Nitroglycerin 0.4 mg Q5MINP PRN SL 04/07/25 06:15 Morphine Sulfate 2 mg Q30M PRN IV 04/07/25 06:15 Diagnostic Test (Pha) 1 strip ACHS 04/07/25 07:00 04/09/25 11:30 1 STRIP Insulin Human Regular ACHS SC 04/07/25 07:00 04/09/25 11:30 6 UNITS Dextrose 50 ml UD PRN IV 04/07/25 06:30 Ondansetron HCl 4 mg Q6HPRN PRN IV 04/07/25 06:30 Hydralazine HCl 10 mg Q6HP PRN IV 04/07/25 07:45 04/09/25 12:21 10 MG Doxycycline Monohydrate 100 mg Q12HR PO 04/08/25 11:04 04/09/25 10:02 100 MG Acetaminophen/ Hydrocodone Bitart 1 tab Q4HPRN PRN PO 04/08/25 12:30 04/08/25 20:16 1 TAB Examination: GENERAL:Abnormal, HEENT:Abnormal, LUNGS:Abnormal, CVS:Abnormal, ABDOMEN:Abnormal laboratory and microbiology Laboratory Tests 04/09/25 05:49 Test 04/09/25 05:49 Range/Units Serum Glucose 146 H 74-106 mg/dL Problem List/Assessment/Plan Problem List/Assessment/Plan sick sinus s/p ppm bradycardia HTN HL cont abx dc home 04/09 after device check with 7 days of doxy wound check 1-2 weeks with me ppm on xray dc home when cleared by dr azam cline Plan discussed with: Patient Date of Service: Apr 09, 2025 Billing Provider: RAMSES PEMBERTON MD Common Visit Codes: NOT BILLABLE RAMSES PEMBERTON MD Apr 09, 2025 13:18
--- NOTE | 2025-04-10 00:07 | DVHINCON2 ---
Date of service: Apr 08, 2025 Referring Physician Vilma Reason for Consultation Bradycardia History of Present Illness This is an 84 year old Male with a PMH of HTN and DM who presented to the ED with complaint of SOB with associated chest pain upon deep inspiration, dizziness and a headache. Per patient's daughter at bedside the patient was recently seen at [facility] 3 days ago for SOB and low blood pressure readings and was told that he needs a pacemaker. Chest x-ray showed NAD. Initial EKG showed junctional jesus rate of 38. Patietn received Atropine x2. Patient was admitted to the hospital. Dr. Esparza asked me to se this patient for PPM insertion. Family History: FH: heart attack G8 FATHER FH: ovarian cancer G8 MOTHER Allergies: Coded Allergies: Shellfish Allergy (Verified Allergy, Mild, 04/07/25) Home Meds Active Scripts Metformin Hydrochloride (Metformin Hcl) 500 Mg Tab, 1 TAB PO BID, #60 TAB 3 Refills Prov:MARIANO QUACH S DO 04/09/25 Doxycycline (Monohydrate) (Doxycycline) 100 Mg Tab, 100 MG PO BID for 7 Days, #14 TAB 0 Refills Prov:MARIANO QUACH S DO 04/08/25 Reported Medications Cholecalciferol (Vitamin D) 2,000 Unit Cap, 2000 UNIT PO, CAP 04/07/25 Aspirin (Aspir-81) 81 Mg Tab, 1 TAB PO DAILY, #30 TAB 5 Refills 04/07/25 Tamsulosin Hcl (Flomax) 0.4 Mg Cap, 1 CAP PO DAILY, #30 CAP 11 Refills 04/07/25 Amlodipine Besylate (Amlodipine Besylate) 5 Mg Tab, 1 TAB PO DAILY, #30 TAB 5 Refills 04/07/25 Hctz (Hydrochlorothiazide) 25 Mg Tab, 25 MG GT, TAB 04/07/25 Losartan Potassium (Losartan Potassium) 50 Mg Tab, 1 TAB PO DAILY, #30 TAB 5 Refills 04/07/25 Atorvastatin Calcium (ATORVASTATIN CALCIUM) 20 Mg Tab, 1 TAB PO DAILY, #30 TAB 5 Refills 04/07/25 Discontinued Reported Medications Naproxen (Naproxen) 375 Mg Tab, 1 TAB PO BID, #60 TAB 5 Refills 04/07/25 Current Medications Current Medications Medications (Trade) Dose Ordered Sig/Celestina Route PRN Reason Start Time Stop Time Status Last Admin Vancomycin HCl 200 ml @ 200 mls/hr Q12HR IV 04/08/25 22:00 04/09/25 10:59 Doxycycline Monohydrate (Vibramycin Tablet) 100 mg Q12HR PO 04/08/25 11:04 04/08/25 11:58 Acetaminophen/ Hydrocodone Bitart ([place] 5/325MG Tab) 1 tab Q4HPRN PRN PO MODERATE PAIN (4-6 PAIN SCALE) 04/08/25 12:30 04/08/25 13:18 Review of Systems REVIEW OF SYSTEMS: No fever, no chills, or fatigue HEENT: No sore throat, no earache, no congestion, no neck pain. Cardiac: No chest pain. No palpitations. Lungs: + shortness of breath, no cough. GI: No nausea, no vomiting, no diarrhea, no constipation, no abdominal pain : No dysuria, frequency, or urgency. No hematuria. Musculoskeletal: No joint pain , no joint swelling, no extremity edema. Skin: No rash, no itching. Neuro: + headache, + dizziness, no weakness Vital Signs Vital Signs Date Time Temp Pulse Resp B/P (MAP) Pulse Ox O2 Delivery O2 Flow Rate FiO2 04/08/25 11:59 175/90 04/08/25 11:15 97.6 60 17 96 97.6 04/07/25 20:00 Room Air* 0 21 Physical Exam GENERAL: Alert and oriented x 3. No acute distress. EYES: PERRL, EOMI. Anicteric. HENT: Moist mucous membranes. LUNGS: Clear to auscultation bilaterally. CARDIOVASCULAR: Regular rate and rhythm. ABDOMEN: Soft, nontender and nondistended. EXTREMITIES: No edema. NEUROLOGIC: No focal neurological deficits. SKIN: Warm, dry. Labs/Diagnostic Data Labs Test 04/08/25 11:47 04/08/25 06:34 04/07/25 15:58 04/07/25 01:54 Range/Units POC Glucose 170 H 70-106 mg/dl White Blood Count 7.8 4.4-10.8 10^3/uL Red Blood Count 4.88 4.5-5.90 10^6/uL Hemoglobin 15.1 13.5-17.5 g/dL Hematocrit 42.4 41.0-53.0 % Mean Corpuscular Volume 87.0 80.0-100.0 fL Mean Corpuscular Hemoglobin 31.0 28.0-32.0 pg Mean Corpuscular Hemoglobin Concent 35.7 32.0-36.0 g/dL Red Cell Distribution Width 13.4 11.8-14.3 % Platelet Count 163 140-450 10^3/uL Mean Platelet Volume 9.8 6.9-10.8 fL Neutrophils (%) (Auto) 60.2 37.0-80.0 % Lymphocytes (%) (Auto) 30.9 10.0-50.0 % Monocytes (%) (Auto) 6.2 0.0-12.0 % Eosinophils (%) (Auto) 2.3 0.0-7.0 % Basophils (%) (Auto) 0.4 0.0-2.0 % Neutrophils # (Auto) 4.7 1.6-8.6 10 ^3/uL Lymphocytes # (Auto) 2.4 0.4-5.4 10 ^3/uL Monocytes # (Auto) 0.5 0-1.3 10 ^3/uL Eosinophils # (Auto) 0.2 0-0.8 10 ^3/uL Basophils # (Auto) 0 0-0.2 10 ^3/uL Nucleated Red Blood Cells 0.1 % Sodium Level 141 136-145 mmol/L Potassium Level 3.4 L 3.5-5.1 mmol/L Chloride Level 105 98-107 mmol/L Carbon Dioxide Level 25 20-31 mmol/L Anion Gap 11 5-15 Blood Urea Nitrogen 14 9-23 mg/dL Creatinine 0.99 0.700-1.30 mg/dL Glomerular Filtration Rate Calc 75 >90 mL/min BUN/Creatinine Ratio 14.1 10.0-20.0 Serum Glucose 121 H 74-106 mg/dL Calcium Level 9.8 8.7-10.4 mg/dL Total Bilirubin 2.5 H 0.2-1.0 mg/dL Aspartate Amino Transferase (AST) 17 13-40 U/L Alanine Aminotransferase (ALT) 19 7-40 U/L Alkaline Phosphatase 84 46-116 U/L Total Protein 6.3 5.7-8.2 g/dL Albumin 4.1 3.2-4.8 g/dL Prothrombin Time 11.4 9.3-11.8 sec Prothrombin Time INR 1.08 0.9-1.15 Hepatitis B Surface Antigen Negative Negative Hepatitis C Antibody Negative Negative Urine Color Light-yellow Yellow Urine Clarity Clear Clear Urine pH 6.5 5.0-9.0 Urine Specific [place] 1.008 1.001-1.035 Urine Protein Negative Negative Urine Ketones Negative Negative Urine Blood Negative Negative /uL Urine Nitrite Negative Negative Urine Bilirubin Negative Negative Urine Urobilinogen Normal Negative mg/dL Urine Leukocyte Esterase Negative Negative /uL Urine RBC None seen 0 - 3 /hpf Urine Microscopic WBC < 1 0-3 /HPF Urine Squamous Epithelial Cells None seen <5 /hpf Urine Bacteria None seen None Seen /hpf Urine Glucose Normal Normal mg/dL Test 04/07/25 00:32 Range/Units Magnesium Level 1.9 1.6-2.6 mg/dL Troponin I High Sensitivity 14 </=54 ng/L B-Type Natriuretic Peptide 192.89 0-100 pg/mL Thyroid Stimulating Hormone (TSH) 2.64 0.55-4.78 uIU/mL Assessment Symptomatic bradycardia. Sick sinus syndrome. HTN. HLD. DM. Obesity. CKD. Plan/Recommendation I agree with your ongoing assessment and care of plan. Telemetry reviewed. Advised to undergo permanent pacemaker. Risks and benefits all have been explained. IV antibiotics as ordered. IV Hydralazine for SBP > 150. Morphine and [place] for pain management. Additional plan as per the hospital course. A total of 45 minutes was spent reviewing the patient record, examining the patient, making a diagnostic and therapeutic plan, discussing this plan with medical personnel, following up on diagnostic studies and following the patient for clinical stability excluding any and all procedures. At least 50% of this time was spent in direct, [id number] contact. Plan discussed with: Patient ABHAY NAM MD Apr 08, 2025 14:04
--- NOTE | 2025-04-10 00:09 | DVHPN2 ---
Progress Note - Dictate Date Seen: Apr 09, 2025 Medical Necessity Reason Pt with a Central, PICC or Fol: No Subjective Patient was seen and evaluated in follow up. Patient is s/p PPM. Patient complains of left upper chest pressure at the pacemaker site. WBC 20.1, HGB A1C 6.7. Patient is advised for 7 days of doxycycline. Advised to follow up with cardiology in 1-2 weeks. Telemetry reviewed. vital signs Vital Sign Date Time Temp Pulse Resp B/P (MAP) Pulse Ox O2 Delivery O2 Flow Rate FiO2 04/09/25 09:00 98.1 72 17 137/80 (99) 98 98.1 04/08/25 20:00 Room Air* 0 21 Total Intake and Output 04/08/25 04/08/25 04/09/25 15:00 23:00 07:00 Intake Total 700 ml 800 ml Balance 700 ml 800 ml medications Current Medications Medications Dose Ordered Sig/Celestina Route Start Time Stop Time Status Last Admin Dose Admin Nitroglycerin 0.4 mg Q5MINP PRN SL 04/07/25 06:15 Morphine Sulfate 2 mg Q30M PRN IV 04/07/25 06:15 Diagnostic Test (Pha) 1 strip ACHS 04/07/25 07:00 04/09/25 06:18 1 STRIP Insulin Human Regular ACHS SC 04/07/25 07:00 04/09/25 06:19 3 UNITS Dextrose 50 ml UD PRN IV 04/07/25 06:30 Ondansetron HCl 4 mg Q6HPRN PRN IV 04/07/25 06:30 Hydralazine HCl 10 mg Q6HP PRN IV 04/07/25 07:45 04/09/25 05:35 10 MG Doxycycline Monohydrate 100 mg Q12HR PO 04/08/25 11:04 04/09/25 10:02 100 MG Acetaminophen/ Hydrocodone Bitart 1 tab Q4HPRN PRN PO 04/08/25 12:30 04/08/25 20:16 1 TAB objective GENERAL: Alert and oriented x 3. No acute distress. EYES: PERRL, EOMI. Anicteric. HENT: Moist mucous membranes. LUNGS: Clear to auscultation bilaterally. CARDIOVASCULAR: Regular rate and rhythm. ABDOMEN: Soft, nontender and nondistended. EXTREMITIES: No edema. NEUROLOGIC: No focal neurological deficits. SKIN: Warm, dry. laboratory and microbiology Laboratory Tests 04/09/25 05:49 Test 04/09/25 05:49 Range/Units Serum Glucose 146 H 74-106 mg/dL Problem List Symptomatic bradycardia. Sick sinus syndrome. Status post PPM. HTN. HLD. DM. Obesity. CKD. Assessment/Plan Continued all current supportive medical care. IV antibiotics as ordered. IV Hydralazine for SBP > 150. Morphine and [place] for pain management. Additional plan as per the hospital course. Plan discussed with: Patient ABHAY NAM MD Apr 09, 2025 11:19
--- NOTE | 2025-04-13 08:11 | DVHOP ---
DATE OF SURGERY: 04/08/2025 TECHNIQUE PERFORMED: * Emergency case. * Left subclavian venogram. * Management of conscious sedation. * Implantation of a dual chamber permanent pacemaker from left subclavian region ([employer] device MRI proof). * Interrogation of the device. ASSISTED BY: Assisted by Yvon Pardo, and Elidia. INDICATIONS: The patient has sick sinus syndrome. DESCRIPTION OF PROCEDURE: The procedure, risks and benefits discussed in a standard manner. lidocaine was given. had been obtained. Subsequently, we put a. Ventricular lead was passed. Ventricular lead was too short, so that we had to remove the active lead and now we put a passive lead in the ventricle, which was only available with Zenamins at this time. So, subsequently now standard manner. Subsequently, now we had put another lead and we had to use the previously used active lead which was placed in the right ventricle. So, the same lead was used to put in the atrium and it worked out very well. It was screwed in very well. It was sensing very well. with the help of Ethibond. Subsequently, now we put a screwed in very well and put another subcutaneous pocket. The bleeding had all been cauterized. The whole area was cleaned antibiotic solution. Antibiotic applied. Antibiotic sleeve also has been applied. Subsequently with the help of a 2-0 Vicryl followed by 3-0 and the whole wound has been very well sutured. We also put Dermabond and Telfa Op-Site and the procedure went well. There were no complications. available at this time. P wave is 2.1. Pacing impedance is 551 and threshold is 1.0 per millisecond. The right ventricle pacing impendence and the threshold is 0.5 at 0.4 milliseconds. The procedure went well. Vanessa Denton MD MP/GREGORY/LUCIA TID: [id number] RECEIPT: [id number] RICHELLE
== END 2025-04-09 16:56 | disposition home or self-care (01) | DRG 242 ==
LOC: ER 00:03 → OVERFLOW 06:01 → TELE-CENTR 06:05
PROVIDERS: ADMIT Internal Medicine; ATTEND Internal Medicine
PROC: 0JH606Z Insertion of Pacemaker, Dual Chamber into Chest Subcutaneous Tissue and Fascia, Open Approach (ICD-10-PCS; principal; 2025-04-08)
PROC: 02H63JZ Insertion of Pacemaker Lead into Right Atrium, Percutaneous Approach (ICD-10-PCS; 2025-04-08)
PROC: 02HK3JZ Insertion of Pacemaker Lead into Right Ventricle, Percutaneous Approach (ICD-10-PCS; 2025-04-08)
PROC: B517YZZ Fluoroscopy of Left Subclavian Vein using Other Contrast (ICD-10-PCS; 2025-04-08)
DX: I49.5 Sick sinus syndrome (principal); I50.31 Acute diastolic (congestive) heart failure; I13.0 Hypertensive heart and chronic kidney disease with heart failure and stage 1 through stage 4 chronic kidney disease, or unspecified chronic kidney disease; N18.9 Chronic kidney disease, unspecified; E66.9 Obesity, unspecified; E11.22 Type 2 diabetes mellitus with diabetic chronic kidney disease; E78.5 Hyperlipidemia, unspecified; Z68.27 Body mass index [BMI] 27.0-27.9, adult; Z79.84 Long term (current) use of oral hypoglycemic drugs; Z82.49 Family history of ischemic heart disease and other diseases of the circulatory system; Z95.0 Presence of cardiac pacemaker; Z91.013 Allergy to seafood; Z79.82 Long term (current) use of aspirin; Z79.899 Other long term (current) drug therapy
CPT/HCPCS: 33208; 36415; 71045; 80048; 80053; 81001; 82962; 83036; 83735; 83880; 84443; 84484; 85025; 85610; 86803; 86850; 86900; 86901; 87340; 93005; 93306; 96361; 96374; 99152; G0378; J1815; J2250